=== PATIENT | male | born 1950 | race Two or more races ===

== ENCOUNTER 2021-08-08 10:42 | Emergency (ER) | payer MEDICARE, OTHER ==
[~2021-08-08] VITALS: Ht 177.8 cm; Wt 90.0 kg
[~2021-08-08 10:42] MED LIST: ALBU0.8311 NEB; BUDE10.7 IH; OMEP20CA12 PO; OXCA300T57 PO; PRED-554 PO; PRED-729 PO; SIMV-46 PO; UMEC62.5 IH
[2021-08-08 11:30] VITALS: BP 145/78
== END 2021-08-08 12:50 | disposition left against medical advice (07) ==
LOC: EMS 10:43
DX: R07.9 Chest pain, unspecified (principal); J44.9 Chronic obstructive pulmonary disease, unspecified; G40.909 Epilepsy, unspecified, not intractable, without status epilepticus; Z86.69 Personal history of other diseases of the nervous system and sense organs
CPT/HCPCS: 71045; 93005; 99284; 99285; 36415-L1; 36415-TC